=== PATIENT | male | born 2000 | race African-American/Black ===

== ENCOUNTER 2023-03-03 09:14 | Emergency (ER) | payer SELFPAY ==
[2023-03-03 09:19] VITALS: PULSE 64; RESP 18; TEMP 37.5; O2SAT 98; BMI 22.4
--- NOTE | 2023-03-03 09:49 | ED.GENADULT ---
HPI - General Adult General Date Seen: 03/03/23 Chief complaint: Laceration/Wound Stated complaint: right thumb lac Time Seen by Provider: 03/03/23 09:22 Source: patient Mode of arrival: ambulatory Limitations: no limitations History of Present Illness HPI narrative: Patient is a 22-year-old generally healthy young man who presents for a laceration on his right thumb that occurred while at work. He cut it with a razor blade. Initially blood quite a bit which is what prompted him to come in although it is no longer bleeding. Last tetanus was 2012. Related Data Allergies Allergy/AdvReac Type Severity Reaction Status Date / Time No Known Drug Allergies Allergy Verified 03/03/23 09:19 PFSH PFS Social History Smoking Status: Never smoker Do you use any of these nicotine containing products: None Second hand tobacco smoke exposure: No How often do you have a drink containing alcohol: 2-3 times a week How many standard drinks containing alcohol do you have on a typical day: 3 or 4 How often do you have six or more drinks on one occasion: Never AUDIT-C Alcohol total score: 4 Non-prescribed substance use: denies use service: No Exam Narrative: Exam Narrative: Vital signs reviewed In general, alert, well-appearing young man. Extremities: Examination of the right hand shows a couple cm laceration on the pad of the thumb the majority of which is very superficial, there is 1 small sections a little deeper but there is no gaping, wound is laying together flat, no bleeding. Distal CMS normal. skin: Warm dry and otherwise well perfused. Const: Vital Signs, click to edit/add: Vital Signs - 24 hr 03/03/23 09:19 Temperature 99.5 F Pulse Rate [Pulse Oximeter] 64 Respiratory Rate 18 Pulse Oximetry 98 Oxygen Delivery Me thod Room Air Course Course Hospital Course: I recommended that we update his tetanus today, he declined. Wound was cleaned, there was no bleeding, it is very superficial and I recommended that we put some glue line which discussed with him probably will only last for couple of days but I think by that time it will be well on its way to healing. Return for signs of infection. Work note provided. Vital Signs Vital signs: Initial Vital Signs Temperature 99.5 F 03/03/23 09:19 Temperature Source Temporal Artery Scan 03/03/23 09:19 Pulse Rate 64 03/03/23 09:19 Pulse Rhythm Regular 03/03/23 09:19 Respiratory Rate 18 03/03/23 09:19 Blood Pressure Position Supine 03/03/23 09:19 Pulse Oximetry 98 03/03/23 09:19 Oxygen Delivery Method Room Air 03/03/23 09:19 Vital Signs Temperature 99.5 F 03/03/23 09:19 Pulse Rate 64 03/03/23 09:19 Respiratory Rate 18 03/03/23 09:19 Pulse Oximetry 98 03/03/23 09:19 Oxygen Delivery Method Room Air 03/03/23 09:19 Temperature 99.5 F 03/03/23 09:19 Pulse Rate 64 03/03/23 09:19 Respiratory Rate 18 03/03/23 09:19 Pulse Oximetry 98 03/03/23 09:19 Oxygen Delivery Method Room Air 03/03/23 09:19 Discharge Plan Discharge Clinical Impression: Laceration of thumb Patient Disposition: Home, Self-Care Condition: Improved Instructions: Finger Laceration (ED) Additional Instructions: Routine wound care, keep clean and dry. Return for signs of infection. Glue will slough off on its own. Stand [facility]
--- NOTE | 2023-03-03 09:55 | ED.NURSE ---
did place dressing -tube gauze and coban. did not want a tetanus shot at this time. dr wise was aware.
== END 2023-03-03 10:15 | disposition home or self-care (01) ==
PROVIDERS: Emergency Provider Emergency Medicine
DX: S61.011A Laceration without foreign body of right thumb without damage to nail, initial encounter (principal); W26.8XXA Contact with other sharp object(s), not elsewhere classified, initial encounter; Y99.0 Civilian activity done for income or pay
CPT/HCPCS: 99282; 99283